=== PATIENT | male | born 1940 | race Caucasian/White ===

== ENCOUNTER 2016-04-13 06:25 | Day surgery (SDC) | payer MEDICARE, OTHER ==
--- NOTE | ~2016-04-13 | EGD ---
EGD REPORT [facility] [address] [place] [address] NAME: GAMAL CHINCHILLA : 36 STATUS : REG [facility]#: [id number] AGE: 76 ADM/REG DATE : 04/13/16 MR#: [id number] REPORT SERV DATE: 04/13/16 DICTATED BY: KYA CRANE DATE: 04/13/16 REPORT STATUS : Draft TRANSCRIBED BY: [employer] DATE: 04/13/16 [facility] Patient Name: Gamal Chinchilla Date of : 1940 Attending MD: KYA CRANE MD Procedure Date No Time: 04/13/2016 Procedure: Colonoscopy Indications: Abdominal pain in the left lower quadrant, Constipation Referring MD: LARRY PERSON Medicines: as per anesthesia Complications: No immediate complications. Procedure: Pre-Anesthesia Assessment: - ASA Grade Assessment: II - A patient with mild systemic disease. After I obtained informed consent, the scope was passed under direct vision. Throughout the procedure, the patient's blood pressure, pulse, and oxygen saturations were monitored continuously. The PCF [id number] was introduced through the anus and advanced to the cecum, identified by appendiceal orifice and ileocecal valve. The colonoscopy was performed without difficulty. The patient tolerated the procedure. The quality of the bowel preparation was fair. Findings: The perianal and digital rectal examinations were normal. A few small and large-mouthed diverticula were found in the sigmoid colon. Internal hemorrhoids were found during endoscopy and were mild. Impression: - Diverticulosis in the sigmoid colon. - Internal hemorrhoids. Recommendation: - Continue present medications. Procedure Code(s): --- Professional --- 12029, Colonoscopy, flexible, proximal to splenic flexure; diagnostic, with or without collection of specimen(s) by brushing or washing, with or without colon decompression (separate procedure) Diagnosis Code(s): --- Professional --- K64.8, Other hemorrhoids K57.30, Diverticulosis of large intestine without perforation or abscess without bleeding EGD REPORT [facility] [address] [place] [address] NAME: GAMAL CHINCHILLA : [birth year] STATUS : [place] [facility] [place]#: [id number] AGE: 76 ADM/REG DATE : 04/13/16 MR#: [id number] REPORT SERV DATE: 04/13/16 DICTATED BY: KYA CRANE. DATE: 04/13/16 REPORT STATUS : Draft TRANSCRIBED BY: [employer] DATE: 04/13/16 R10.32, Left lower quadrant pain K59.00, Constipation, unspecified CPT copyright 2013 [employer]. All rights reserved. The codes documented in this report are preliminary and upon clinical research nurse review may be revised to meet current compliance requirements. KYA CRANE MD 04/13/2016 8:33 AM This report has been signed electronically. Number of Addenda: 0 Note Initiated On: 04/13/2016 8:09 AM Scope Withdrawal Time 0 hours 10 minutes 42 seconds [id number] [place] [id number]
[~2016-04-13 06:25] MED LIST: 8 HOUR650 MG PO; ATV1 PO; CYMBALTA30 PO; FLOMAX4 PO; FLONASE NAS; HYOMAX-SL0.125 MG SL; LINZESS 290 M290 MCG PO; METANX PO; MULTIVITAMI1 PO; PEPPERMINT OIL PO; VITAMIN D31000 UNIT PO; ZYRTEC ALLGY10 MG PO
== END 2016-04-13 23:59 | disposition home health service (06) ==
LOC: DMU 06:25
PROVIDERS: Internal Medicine Gastroenterology
PROC: 0DJD8ZZ Inspection of Lower Intestinal Tract, Via Natural or Artificial Opening Endoscopic (ICD-10-PCS; principal; 2016-04-13 07:30)
DX: K64.8 Other hemorrhoids (principal); K57.30 Diverticulosis of large intestine without perforation or abscess without bleeding; F41.9 Anxiety disorder, unspecified; K58.9 Irritable bowel syndrome, unspecified; G62.9 Polyneuropathy, unspecified; F32.9 Major depressive disorder, single episode, unspecified; Z98.890 Other specified postprocedural states; Z87.891 Personal history of nicotine dependence; Z90.49 Acquired absence of other specified parts of digestive tract